=== PATIENT | female | born 1980 | race Native Hawaiian/Other Pacific Islander ===

== ENCOUNTER 2018-06-28 09:30 | Outpatient (CLI) | payer BC | END 2018-06-28 21:03 | disposition home or self-care (01) | LOC: LABW 09:30 | DX: J02.9 Acute pharyngitis, unspecified (principal) | CPT/HCPCS: 87081 ==

== ENCOUNTER 2020-04-18 16:22 | Outpatient (CLI) | payer BC | END 2020-04-18 21:06 | disposition home or self-care (01) | LOC: LABW 16:22 | PROVIDERS: ATTEND Nurse Practitioner Family | DX: R53.83 Other fatigue (principal); R63.5 Abnormal weight gain ==